=== PATIENT | male | born 1975 | race African-American/Black ===

== ENCOUNTER 2016-08-26 11:17 | Inpatient (IN) | payer OTHER ==
[~2016-08-26] VITALS: Ht 185.4 cm; Wt 74.2 kg
[~2016-08-26 11:17] MED LIST: CARAFATE1 GM PO; MOTRIN800 MG PO; NOHOMEMEDS
[2016-08-26 12:12] LABS: HEMATOCRIT 37.9 % (38.0-50.0); MCH 32.8 PG (29.0-34.0); MCV 99.5 FL (86-99); MEAN PLAT.VOLUME 9.6 uM^3 (9.0-12.4); PLATELET COUNT 304 K/uL (156-360); RBC DIS.WIDTH-CV 13.4 % (11.8-14.6); RBC DIS.WIDTH-SD 48.5 % (39-53); RED BLOOD COUNT 3.81 M/uL (4.00-5.50); WHITE BLOOD COUNT 7.1 K/uL (4.1-10.2)
[2016-08-26 12:22] LABS: CHLORIDE 105 mEq/L (99-109); POTASSIUM 3.9 mEq/L (3.7-5.4); SODIUM 140 mEq/L (136-147)
[2016-08-26 12:23] LABS: GLUCOSE 66 mg/dL (70-99)
[2016-08-26 12:25] LABS: ANION GAP 11 MEQ/L (2-14)
[2016-08-26 12:27] LABS: GFR ESTIMATE (CALCULATED) > 59 mL/min/; SERUM ETHYL ALCOHOL < 10 mg/dL
[2016-08-26 12:28] LABS: UREA NITROGEN (BUN) 8 mg/dL (9-23)
[2016-08-26 13:55] LABS: AMPHETAMINE NEGATIVE (500 ng/mL); BARBITURATES NEGATIVE (200 ng/mL); BENZODIAZEPINES NEGATIVE (150 ng/mL); COCAINE NEGATIVE (150 ng/mL); METHADONE NEGATIVE (200 ng/mL); METHAMPHETAMINE NEGATIVE (500 ng/mL); OPIATES (MORPHINE) NEGATIVE (100 ng/mL); OXYCODONE NEGATIVE (100 ng/mL); PHENCYCLIDINE NEGATIVE (25 ng/mL); PROPOXYPHENE NEGATIVE (300 ng/mL); THC CANNABINOIDS PRESUMPTIVE POSITIVE (50 ng/mL); TRICYCLIC ANTIDEPRESSANTS NEGATIVE (300 ng/mL)
[2016-08-26 13:56] LABS: ADD MEDTOX COMMENT Y; INTERNAL CONTROLS VALID? YES
[2016-08-26 19:27] VITALS: BP 117/57
[2016-08-27 07:25] VITALS: BP 117/63
[2016-08-27 15:47] VITALS: BP 112/57
[2016-08-28 07:49] VITALS: BP 113/68
[2016-08-28] MEDS ORDERED: FLUOXETINE HCL20 MG PO (09:57)
== END 2016-08-28 13:12 | disposition home or self-care (01) | DRG 885 ==
LOC: EME 11:17 → EDOF 14:00 → 1WEST 14:00
DX: F32.0 Major depressive disorder, single episode, mild (principal); F10.20 Alcohol dependence, uncomplicated; F12.10 Cannabis abuse, uncomplicated; F17.200 Nicotine dependence, unspecified, uncomplicated
CPT/HCPCS: 80048; 84999; 85027; 90839; 99281; 99285; G0480

== ENCOUNTER 2016-09-06 08:28 | Inpatient (IN) | payer OTHER ==
[~2016-09-06] VITALS: Ht 185.4 cm; Wt 100.0 kg
[~2016-09-06 08:28] MED LIST changes: +FLUOXETINE HCL20 MG PO
[2016-09-06 09:30] LABS: HEMATOCRIT 39.2 % (38.0-50.0); MCH 33.2 PG (29.0-34.0); MCHC 33.7 G/DL (30.0-36.0); MCV 98.5 FL (86-99); RBC DIS.WIDTH-CV 12.5 % (11.8-14.6); RBC DIS.WIDTH-SD 45.7 % (39-53); RED BLOOD COUNT 3.98 M/uL (4.00-5.50)
[2016-09-06 09:37] LABS: CHLORIDE 106 mEq/L (99-109); POTASSIUM 4.4 mEq/L (3.7-5.4); SODIUM 138 mEq/L (136-147)
[2016-09-06 09:39] LABS: GLUCOSE 74 mg/dL (70-99)
[2016-09-06 09:40] LABS: ANION GAP 13 MEQ/L (2-14)
[2016-09-06 09:42] LABS: SERUM ETHYL ALCOHOL < 10 mg/dL
[2016-09-06 09:43] LABS: GFR ESTIMATE (CALCULATED) > 59 mL/min/; UREA NITROGEN (BUN) 16 mg/dL (9-23)
[2016-09-06 09:49] LABS: WHITE BLOOD COUNT 4.7 K/uL (4.1-10.2)
[2016-09-06 10:24] LABS: MEAN PLAT.VOLUME 9.9 uM^3 (9.0-12.4)
[2016-09-06] MEDS ORDERED: PROZAC20 MG PO (10:32)
[2016-09-06 10:41] LABS: PLATELET COUNT 178 K/uL (156-360)
[2016-09-06 11:06] VITALS: BP 118/69
[2016-09-06 15:21] VITALS: BP 114/54
[2016-09-07 07:56] VITALS: BP 104/50
[2016-09-07 15:31] VITALS: BP 111/64
[2016-09-08 07:36] VITALS: BP 107/59
[2016-09-08 15:55] VITALS: BP 127/76
[2016-09-09 07:47] VITALS: BP 106/56
[2016-09-09 15:34] VITALS: BP 125/71
[2016-09-10 07:22] VITALS: BP 117/56
[2016-09-10 15:28] VITALS: BP 130/66
[2016-09-11 07:34] VITALS: BP 107/59
[2016-09-11] MEDS ORDERED: PROZAC10 MG PO (09:26)
== END 2016-09-11 12:41 | disposition home or self-care (01) | DRG 885 ==
LOC: EME 08:28 → 1WEST 10:16 → EDOF 10:16 → 1WEST 10:59
PROVIDERS: Nurse Practitioner Family
DX: F33.1 Major depressive disorder, recurrent, moderate (principal); R45.851 Suicidal ideations; F10.99 Alcohol use, unspecified with unspecified alcohol-induced disorder; F12.90 Cannabis use, unspecified, uncomplicated; Z88.0 Allergy status to penicillin
CPT/HCPCS: 80048; 81003; 85027; 90839; 97150 GO; 97165 GO; 99281; 99285; G0480

== ENCOUNTER 2017-05-12 01:37 | Emergency (ER) | payer OTHER ==
[~2017-05-12] VITALS: Ht 185.4 cm; Wt 73.6 kg
[~2017-05-12 01:37] MED LIST changes: +PROZAC10 MG PO; +PROZAC20 MG PO
[2017-05-12 03:16] LABS: BASOPHIL COUNT 0.1 K/uL (0-0.1); EOSINOPHIL (%) 3.7 % (0-5); EOSINOPHIL COUNT 0.2 K/uL (0-0.3); HEMATOCRIT 34.5 % (38.0-50.0); INSTRUMENT ABS NEUTROPHIL CT 2.2 K/uL; LYMPHOCYTE COUNT 1.7 K/uL (1.0-2.8); MCH 33.5 PG (29.0-34.0); MCHC 33.9 G/DL (30.0-36.0); MCV 98.9 FL (86-99); MONOCYTE (%) 8.6 % (3-12); MONOCYTE COUNT 0.4 K/uL (0-0.8); NEUTROPHIL (%) 49.1 % (45-76); NEUTROPHIL COUNT 2.2 K/uL (1.8-6.4); PLATELET COUNT 207 K/uL (156-360); RBC DIS.WIDTH-CV 12.6 % (11.8-14.6); RED BLOOD COUNT 3.49 M/uL (4.00-5.50); WHITE BLOOD COUNT 4.6 K/uL (4.1-10.2)
[2017-05-12 03:25] LABS: CHLORIDE 109 mEq/L (99-109); POTASSIUM 3.9 mEq/L (3.7-5.4); SODIUM 142 mEq/L (136-147)
[2017-05-12 03:26] LABS: GLUCOSE 82 mg/dL (70-99)
[2017-05-12 03:28] LABS: ANION GAP 13 MEQ/L (2-14)
[2017-05-12 03:29] LABS: SERUM ETHYL ALCOHOL 106 mg/dL
[2017-05-12 03:30] LABS: GFR ESTIMATE (CALCULATED) > 59 mL/min/
[2017-05-12 03:31] LABS: UREA NITROGEN (BUN) 11 mg/dL (9-23)
[2017-05-12 04:45] VITALS: BP 102/58
== END 2017-05-12 04:46 | disposition home or self-care (01) ==
LOC: EME 01:37
PROVIDERS: Emergency Medicine
DX: F33.1 Major depressive disorder, recurrent, moderate (principal); F19.14 Other psychoactive substance abuse with psychoactive substance-induced mood disorder; F10.20 Alcohol dependence, uncomplicated; F14.20 Cocaine dependence, uncomplicated; Y90.5 Blood alcohol level of 100-119 mg/100 ml; S46.911A Strain of unspecified muscle, fascia and tendon at shoulder and upper arm level, right arm, initial encounter; X58.XXXA Exposure to other specified factors, initial encounter; Z04.6 Encounter for general psychiatric examination, requested by authority; R56.9 Unspecified convulsions; Z88.0 Allergy status to penicillin; F17.200 Nicotine dependence, unspecified, uncomplicated
CPT/HCPCS: 73030; 80048; 85025; 90837; 99281; 99285; G0480

== ENCOUNTER 2017-05-25 03:53 | Inpatient (IN) | payer OTHER ==
[~2017-05-25] VITALS: Ht 185.4 cm; Wt 69.1 kg
[2017-05-25] VITALS (18 sets, daily range): BP systolic 93–182; BP diastolic 63–109
[2017-05-25 04:15] LABS: BASOPHIL COUNT 0.1 K/uL (0-0.1); EOSINOPHIL (%) 1.3 % (0-5); EOSINOPHIL COUNT 0.1 K/uL (0-0.3); HEMATOCRIT 42.7 % (38.0-50.0); IMMATURE GRANULOCYTE (%) 2.8 % (0.0-0.7); IMMATURE GRANULOCYTE COUNT 0.3 K/uL; INSTRUMENT ABS NEUTROPHIL CT 4.4 K/uL; LYMPHOCYTE COUNT 3.6 K/uL (1.0-2.8); MCH 34.1 PG (29.0-34.0); MCHC 33.3 G/DL (30.0-36.0); MCV 102.4 FL (86-99); MEAN PLAT.VOLUME 10.4 uM^3 (9.0-12.4); MONOCYTE (%) 5.4 % (3-12); MONOCYTE COUNT 0.5 K/uL (0-0.8); NEUTROPHIL (%) 49.4 % (45-76); NEUTROPHIL COUNT 4.4 K/uL (1.8-6.4); PLATELET COUNT 264 K/uL (156-360); RBC DIS.WIDTH-CV 12.7 % (11.8-14.6); RBC DIS.WIDTH-SD 47.9 % (39-53); RED BLOOD COUNT 4.17 M/uL (4.00-5.50); WHITE BLOOD COUNT 8.9 K/uL (4.1-10.2)
[2017-05-25 04:29] LABS: AMYLASE 156 IU/L (1-118); CHLORIDE 107 mEq/L (99-109); POTASSIUM 3.6 mEq/L (3.7-5.4); SODIUM 140 mEq/L (136-147)
[2017-05-25 04:31] LABS: GLUCOSE 228 mg/dL (70-99)
[2017-05-25 04:32] LABS: BASE EXCESS -12.6 mEq/L (-3 to +3); BICARBONATE 16.3 mEq/L (22-26); METHEMOGLOBIN 0.6 % (0-1.5); PCO2 48 mm Hg (35-45); PO2 350 mm Hg (80-100)
[2017-05-25 04:32] LABS: ANION GAP 21 MEQ/L (2-14)
[2017-05-25 04:33] LABS: CARBOXY HGB 10.8 % (0-5); COMMENTS - BLOOD GASES C+A+; DEVICE VENTILATOR; FI02 100 %; MECHANICAL RATE 16 resp/min; MODE AC; PEEP 5 CM/H20; SITE RR; TIDAL VOLUME 500 ML; TOTAL RESP RATE 16 resp/min; pH 7.14 (7.35-7.45)
[2017-05-25 04:34] LABS: SERUM ETHYL ALCOHOL 55 mg/dL
[2017-05-25 04:35] LABS: GFR ESTIMATE (CALCULATED) > 59 mL/min/ (58.99-99999)
[2017-05-25 04:36] LABS: UREA NITROGEN (BUN) 6 mg/dL (9-23)
[2017-05-25 04:38] LABS: LIPASE 45 U/L (1.0-51.0)
[2017-05-25 04:55] LABS: ADD MIUA? YES; BILIRUBIN NEGATIVE; BLOOD SMALL; COLOR YELLOW ((YELLOW)); GLUCOSE (STRIP) >=500; KETONES NEGATIVE; LEUKOCYTES NEGATIVE; NITRITE NEGATIVE; PROTEIN (STRIP) 100; SPECIFIC GRAVITY 1.018 (1.000-1.030); UROBILINOGEN 0.2 MG/DL (0.2-1.0)
[2017-05-25 05:07] LABS: AMPHETAMINE NEGATIVE (500 ng/mL); BARBITURATES NEGATIVE (200 ng/mL); BENZODIAZEPINES NEGATIVE (150 ng/mL); COCAINE NEGATIVE (150 ng/mL); INTERNAL CONTROLS VALID? YES; METHADONE NEGATIVE (200 ng/mL); METHAMPHETAMINE NEGATIVE (500 ng/mL); OPIATES (MORPHINE) NEGATIVE (100 ng/mL); OXYCODONE NEGATIVE (100 ng/mL); PHENCYCLIDINE NEGATIVE (25 ng/mL); PROPOXYPHENE NEGATIVE (300 ng/mL); THC CANNABINOIDS PRESUMPTIVE POSITIVE (50 ng/mL); TRICYCLIC ANTIDEPRESSANTS NEGATIVE (300 ng/mL)
[2017-05-25 05:08] LABS: ADD MEDTOX COMMENT Y
[2017-05-25 05:19] LABS: BACTERIA NONE SEEN /HPF; EPITHELIAL CELLS NONE SEEN /HPF; MUCUS TRACE /LPF; RED BLOOD CELLS 0-5 /HPF (0-5); UCUL ADDED? NO; WHITE BLOOD CELLS 0-5 /HPF (0-5)
[2017-05-25 09:05] LABS: BASE EXCESS -3.9 mEq/L (-3 to +3); CARBOXY HGB 3.5 % (0-5); METHEMOGLOBIN 1.6 % (0-1.5); PCO2 48 mm Hg (35-45)
[2017-05-25 09:06] LABS: BICARBONATE 23.1 mEq/L (22-26); COMMENTS - BLOOD GASES C+ANA; DEVICE 840 PB; FI02 100 %; MECHANICAL RATE 16 resp/min; MODE AC; PO2 249 mm Hg (80-100); SITE ALINE; TIDAL VOLUME 500 ML; TOTAL RESP RATE 16 resp/min; pH 7.29 (7.35-7.45)
[2017-05-25 09:07] LABS: PEEP 5 CM/H20
[2017-05-25 10:48] LABS: ALKALINE PHOSPHATASE 59 IU/L (3-129); GFR ESTIMATE (CALCULATED) > 59 mL/min/ (58.99-99999); GLUCOSE 122 mg/dL (70-99); SAMPLE HEMOLYSIS CHECK 0; SAMPLE ICTERIC CHECK 0; SAMPLE LIPEMIA CHECK 0; TOTAL BILIRUBIN 0.5 MG/DL (0.0-1.0); UREA NITROGEN (BUN) 10 mg/dL (9-23)
[2017-05-25 11:13] LABS: ANION GAP 10 MEQ/L (2-14); CHLORIDE 110 MEQ/L (99-109); SODIUM 140 MEQ/L (136-147)
[2017-05-25 11:16] LABS: POTASSIUM 4.7 MEQ/L (3.7-5.4)
[2017-05-25 11:39] LABS: METH RESISTANT S AUREUS PCR NEGATIVE (NEGATIVE); PROBE CHECK PASS; SPECIMEN PROCESSING CONTROL PASS
[2017-05-25 18:30] LABS: ANION GAP 10 MEQ/L (2-14); CHLORIDE 109 MEQ/L (99-109); GFR ESTIMATE (CALCULATED) > 59 mL/min/ (58.99-99999); GLUCOSE 149 mg/dL (70-99); POTASSIUM 4.6 MEQ/L (3.7-5.4); SAMPLE HEMOLYSIS CHECK 0; SAMPLE ICTERIC CHECK 0; SAMPLE LIPEMIA CHECK 0; SODIUM 139 MEQ/L (136-147); UREA NITROGEN (BUN) 13 mg/dL (9-23)
[2017-05-26] VITALS (12 sets, daily range): BP systolic 90–108; BP diastolic 59–72
[2017-05-26 00:39] LABS: CHLORIDE 114 mEq/L (99-109); POTASSIUM 5.5 mEq/L (3.7-5.4); SODIUM 140 mEq/L (136-147)
[2017-05-26 00:41] LABS: GLUCOSE 151 mg/dL (70-99)
[2017-05-26 00:42] LABS: ANION GAP 11 MEQ/L (2-14)
[2017-05-26 00:45] LABS: GFR ESTIMATE (CALCULATED) > 59 mL/min/ (58.99-99999); UREA NITROGEN (BUN) 11 mg/dL (9-23)
[2017-05-26 01:34] LABS: BASE EXCESS -7.1 mEq/L (-3 to +3); BICARBONATE 16.3 mEq/L (22-26); CARBOXY HGB 1.9 % (0-5); METHEMOGLOBIN 1.8 % (0-1.5); PCO2 27 mm Hg (35-45); PO2 149 mm Hg (80-100); pH 7.39 (7.35-7.45)
[2017-05-26 01:35] LABS: COMMENTS - BLOOD GASES A+; DEVICE 840VENT; FI02 65 %; MECHANICAL RATE 12 resp/min; MODE AC; PEEP 7.5 CM/H20; SITE ALINE; TIDAL VOLUME 800 ML; TOTAL RESP RATE 12 resp/min
[2017-05-26 05:52] LABS: EOSINOPHIL (%) 0 % (0-5); HEMATOCRIT 41.7 % (38.0-50.0); IMMATURE GRANULOCYTE (%) 0.3 % (0.0-0.7); LYMPHOCYTE COUNT 0.7 K/uL (1.0-2.8); MCH 33.1 PG (29.0-34.0); MCHC 32.9 G/DL (30.0-36.0); MCV 100.7 FL (86-99); MEAN PLAT.VOLUME 10.5 uM^3 (9.0-12.4); MONOCYTE (%) 6.8 % (3-12); MONOCYTE COUNT 0.8 K/uL (0-0.8); NEUTROPHIL (%) 86.6 % (45-76); PLATELET COUNT 201 K/uL (156-360); RBC DIS.WIDTH-CV 12.9 % (11.8-14.6); RBC DIS.WIDTH-SD 48.5 % (39-53); RED BLOOD COUNT 4.14 M/uL (4.00-5.50); WHITE BLOOD COUNT 11.6 K/uL (4.1-10.2)
[2017-05-26 06:50] LABS: ANION GAP 17 MEQ/L (2-14); CHLORIDE 114 MEQ/L (99-109); GFR ESTIMATE (CALCULATED) > 59 mL/min/ (58.99-99999); GLUCOSE 146 mg/dL (70-99); POTASSIUM 5.3 MEQ/L (3.7-5.4); SAMPLE HEMOLYSIS CHECK 0; SAMPLE ICTERIC CHECK 0; SAMPLE LIPEMIA CHECK 0; SODIUM 147 MEQ/L (136-147); UREA NITROGEN (BUN) 12 mg/dL (9-23)
[2017-05-26 12:54] LABS: ANION GAP 11 MEQ/L (2-14); CHLORIDE 115 MEQ/L (99-109); GFR ESTIMATE (CALCULATED) > 59 mL/min/ (58.99-99999); GLUCOSE 133 mg/dL (70-99); POTASSIUM 4.6 MEQ/L (3.7-5.4); SAMPLE HEMOLYSIS CHECK 0; SAMPLE ICTERIC CHECK 0; SAMPLE LIPEMIA CHECK 0; SODIUM 146 MEQ/L (136-147); UREA NITROGEN (BUN) 10 mg/dL (9-23)
[2017-05-27] VITALS (11 sets, daily range): BP systolic 69–139; BP diastolic 36–86
[2017-05-27 07:44] LABS: HEMATOCRIT 36.5 % (38.0-50.0); MCH 33.8 PG (29.0-34.0); MCHC 33.2 G/DL (30.0-36.0); MEAN PLAT.VOLUME 10.5 uM^3 (9.0-12.4); PLATELET COUNT 164 K/uL (156-360); RBC DIS.WIDTH-CV 13.1 % (11.8-14.6); RBC DIS.WIDTH-SD 49.5 % (39-53); RED BLOOD COUNT 3.58 M/uL (4.00-5.50); WHITE BLOOD COUNT 8.6 K/uL (4.1-10.2)
[2017-05-27 08:06] LABS: ANION GAP 9 MEQ/L (2-14); CHLORIDE 118 MEQ/L (99-109); GFR ESTIMATE (CALCULATED) > 59 mL/min/ (58.99-99999); GLUCOSE 130 mg/dL (70-99); MAGNESIUM 1.9 mg/dl (1.3-2.7); POTASSIUM 3.9 MEQ/L (3.7-5.4); SAMPLE HEMOLYSIS CHECK 0; SAMPLE ICTERIC CHECK 0; SAMPLE LIPEMIA CHECK 0; SODIUM 149 MEQ/L (136-147); UREA NITROGEN (BUN) 10 mg/dL (9-23)
== END 2017-05-27 21:21 | DRG 922 ==
LOC: EME → TRA 03:53 → EDBD 04:00 → EME 04:00 → 4WEST 06:28 → EDOF 06:28 → ENRESERV 06:31 → 4WEST 07:23
PROVIDERS: Emergency Medicine; Internal Medicine Critical Care Medicine; Surgery
PROC: 4A133B1 Monitoring of Arterial Pressure, Peripheral, Percutaneous Approach (ICD-10-PCS; principal; 2017-05-25)
PROC: 05H633Z Insertion of Infusion Device into Left Subclavian Vein, Percutaneous Approach (ICD-10-PCS; principal; 2017-05-25)
PROC: 5A1945Z Respiratory Ventilation, 24-96 Consecutive Hours (ICD-10-PCS; 2017-05-25)
DX: T71.164A Asphyxiation due to hanging, undetermined, initial encounter (principal); I46.8 Cardiac arrest due to other underlying condition; G93.1 Anoxic brain damage, not elsewhere classified; E87.4 Mixed disorder of acid-base balance; X83.8XXA Intentional self-harm by other specified means, initial encounter; R73.9 Hyperglycemia, unspecified; I95.9 Hypotension, unspecified; R19.7 Diarrhea, unspecified; R74.0 Nonspecific elevation of levels of transaminase and lactic acid dehydrogenase [LDH]; J96.00 Acute respiratory failure, unspecified whether with hypoxia or hypercapnia; R00.0 Tachycardia, unspecified; G40.901 Epilepsy, unspecified, not intractable, with status epilepticus; F32.9 Major depressive disorder, single episode, unspecified; G93.2 Benign intracranial hypertension; E87.2 Acidosis; E87.3 Alkalosis; Z66 Do not resuscitate; R40.20 Unspecified coma; Z51.5 Encounter for palliative care; F17.200 Nicotine dependence, unspecified, uncomplicated; Z91.5 Personal history of self-harm
CPT/HCPCS: 36600; 70496; 70498; 71010; 72126; 80048; 80048 91; 80053; 81003; 82150; 82803; 83690; 83735; 84100; 84450; 84460; 84999; 85025; 85027; 86850; 86900; 86901; 87070; 87205; 87641; 94002; 94003; 95819; 99281; 99285; C1751; G0480; J1165; J1650; J1953; J2060; J2250; J2270; J2704; J3010; J7030; J7040; J7050